=== PATIENT | male | born 1960 | race Caucasian/White ===

== ENCOUNTER 2024-02-01 23:40 | Observation (INO) | payer MEDICARE ==
[~2024-02-01 23:40] MED LIST: ASPIRIN 81 MG ONE; IBUPROFEN 400 MG TAB ONE; SODIUM CHLORIDE 0.9% 1,000 ML BAG ONE
[2024-02-02] MEDS ORDERED: MORPHINE SULFATE 4 MG/ML SYRINGE ONE (00:38)
[2024-02-02] MEDS ORDERED: ASPIRIN 81 MG ONE (10:51)
[2024-02-02] MEDS ORDERED: EZETIMIBE 10 MG TAB ONE (10:51)
[2024-02-02] MEDS ORDERED: lisinopriL 10 MG TAB ONE (10:51)
[2024-02-02] MEDS ORDERED: RANOLAZINE 500 MG TAB.ER.12H PO ONE (10:52)
[2024-02-02] MEDS ORDERED: IPRATROPIUM-ALBUTEROL 3 ML NEB ONE (11:15)
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
== END 2024-02-02 16:02 | disposition home or self-care (01) ==
LOC: 6NMEDSUR 23:40 → 1SOBS 23:40 → UNDOADMOB 23:40
PROVIDERS: ADMIT Hospitalist; ATTEND Hospitalist
DX: R07.89 Other chest pain (principal); J44.1 Chronic obstructive pulmonary disease with (acute) exacerbation; I25.119 Atherosclerotic heart disease of native coronary artery with unspecified angina pectoris; I10 Essential (primary) hypertension; E78.5 Hyperlipidemia, unspecified; R00.1 Bradycardia, unspecified; F17.210 Nicotine dependence, cigarettes, uncomplicated; Z79.82 Long term (current) use of aspirin; Z79.51 Long term (current) use of inhaled steroids; Z79.899 Other long term (current) drug therapy
CPT/HCPCS: 71046; 80053; 83880; 84484; 85025; 85610; 85730; 94640; 96361; 96374; 99285